=== PATIENT | male | born 1990 | race Caucasian/White ===

== ENCOUNTER 2021-04-12 11:03 | Emergency (ER) | payer OTHER ==
[2021-04-12] MEDS ORDERED: BIAXIN 250MG T250 MG PO (11:30)
== END 2021-04-12 11:43 | disposition home or self-care (01) ==
LOC: ER1 11:03
DX: J02.9 Acute pharyngitis, unspecified (principal); Z88.0 Allergy status to penicillin; F17.210 Nicotine dependence, cigarettes, uncomplicated; Z20.822 Contact with and (suspected) exposure to COVID-19
CPT/HCPCS: 87081; 87880; 99283; U0003

== ENCOUNTER 2021-08-25 17:13 | Emergency (ER) | payer OTHER ==
[~2021-08-25 17:13] MED LIST: BIAXIN 250MG T250 MG PO
== END 2021-08-25 18:56 | disposition home or self-care (01) ==
LOC: ER1 17:13
DX: S41.111A Laceration without foreign body of right upper arm, initial encounter (principal); F17.210 Nicotine dependence, cigarettes, uncomplicated; Z88.0 Allergy status to penicillin; Z88.2 Allergy status to sulfonamides; W25.XXXA Contact with sharp glass, initial encounter; Y92.009 Unspecified place in unspecified non-institutional (private) residence as the place of occurrence of the external cause
CPT/HCPCS: 12002; 73060; 99283